=== PATIENT | male | born 1965 | race Caucasian/White ===

== ENCOUNTER 2017-01-05 10:34 | Emergency (ER) | payer BC, OTHER ==
[~2017-01-05] VITALS: Ht 175.3 cm; Wt 68.5 kg
[~2017-01-05 10:34] MED LIST: LXP10 PO
[2017-01-05 10:37] VITALS: TEMP 36.4; Ht 175.3 cm; Wt 68.5 kg
[2017-01-05] MEDS ORDERED: HYDROCODONE/ACETAMOPHEN 5/325MG TAB PO STA (11:04)
[2017-01-05] MEDS ORDERED: KETOROLAC TROMETHAMINE 60 MG/2 ML VIAL IM STA (11:04)
--- NOTE | 2017-01-05 11:39 | DIAGNOSTIC IMAGING REPORT ---
LUMBAR SPINE 5 VIEWS CLINICAL HISTORY: Fall with low back pain. FINDINGS: 5 views of the lumbar spine are compared to study dated 12/11/2011. The skeletal structures appear osteopenic. There is no radiographic evidence of fracture or malalignment. Vertebral body height and alignment are maintained. The transverse and spinous processes are intact. There is no evidence of spondylolysis. The intervertebral disc spaces are well-maintained. The visualized bony pelvis appears intact. There is a nonobstructed abdominal bowel gas pattern. There is mild atherosclerotic calcification of the abdominal aorta. IMPRESSION: No acute bony abnormality is seen involving the lumbosacral spine. Electronically signed by: Barrett Childers M.D. 01/05/2017 11:38 AM Dictated Date/Time: 01/05/2017 11:36 AM
--- NOTE | 2017-01-05 11:41 | DIAGNOSTIC IMAGING REPORT ---
SINGLE VIEW PELVIS CLINICAL HISTORY: Fall with pelvic pain. FINDINGS: An AP pelvic radiograph is obtained. No prior studies are available for comparison at the time of dictation. The skeletal structures are well mineralized. No fracture is seen involving the hips or bony pelvis. The joint spaces of the hips are preserved. The sacroiliac joints are maintained. The overlying soft tissues are within normal limits. Pelvic phleboliths are observed. There is a nonobstructed abdominal bowel gas pattern. IMPRESSION: There is no radiographic evidence of fracture involving the hips or bony pelvis. Electronically signed by: Barrett Childers M.D. 01/05/2017 11:40 AM Dictated Date/Time: 01/05/2017 11:38 AM
[2017-01-05] MEDS ORDERED: HYDR-5688 PO (12:08)
--- NOTE | 2017-01-05 12:10 | EMERGENCY ROOM VISIT NOTE ---
History First contact with patient: 10:49 Chief Complaint: FALL Stated Complaint: FALL/R SIDE/BACK PAIN History of Present Illness The patient is a 51 year old male who presents to the Emergency Room with complaints of right-sided low back pain. The patient states that last night he was going down the basement and slipped and fell striking his right lower back on the edge of the step. He states the steps are carpeted. The patient denies any pain radiating down his legs or any numbness and tingling. The patient points to the right iliac crest of the area of pain. The patient denies any urinary symptoms of frequency, urgency or dysuria. The patient had back surgery by in the past. Review of Systems 10 system review was performed and was negative unless stated otherwise history of present illness. Past Medical/Surgical History Medical Problems: (1) HYPERLIPIDEMIA NEC/NOS (2) LUMBAGO (3) OSTEOARTHROS NOS-UNSPEC Social History Smoking Status: Current Every Day Smoker Alcohol Use: occasionally Marital Status: Occupation Status: employed Current/Historical Medications Scheduled Escitalopram Oxalate (Escitalopram Oxalate), 1 TAB PO DAILY Allergies Coded Allergies: No Known Allergies (Unverified , 01/05/17) Physical Exam Vital Signs Date Time Temp Pulse Resp B/P Pulse Ox O2 Delivery O2 Flow Rate FiO2 01/05/17 10:37 36.4 89 18 138/85 100 Room Air Physical Exam PHYSICAL EXAM: Vital Signs normal: Reviewed Nurse's notes and agree. GEN.: 51- year-old white male appears uncomfortable secondary to pain. MENTAL STATUS: Alert and oriented 3. LUMBAR SPINE: No gross bony abnormality noted. Patient is nontender to palpation over the spinous processes. He is tender to palpation over the right paravertebral region, left side nontender. He has limited range of motion in all directions secondary to pain. Muscle strength is 5 out of 5 bilateral lower extremities and symmetrical. PELVIS: The patient has tenderness to palpation over the right iliac crest. Full range of motion of both hips. No tenderness over the greater trochanter. NEURO: Patient is able to heel and toe walk without difficulty. I lateral patellar and Achilles reflexes are 2+. Sensation is intact to pinprick bilateral lower extremities. Negative straight leg raise bilaterally. Medical Decision & Procedures ER Provider Diagnostic Interpretation: LUMBAR SPINE 5 VIEWS CLINICAL HISTORY: Fall with low back pain. FINDINGS: 5 views of the lumbar spine are compared to study dated 12/11/2011. The skeletal structures appear osteopenic. There is no radiographic evidence of fracture or malalignment. Vertebral body height and alignment are maintained. The transverse and spinous processes are intact. There is no evidence of spondylolysis. The intervertebral disc spaces are well-maintained. The visualized bony pelvis appears intact. There is a nonobstructed abdominal bowel gas pattern. There is mild atherosclerotic calcification of the abdominal aorta. IMPRESSION: No acute bony abnormality is seen involving the lumbosacral spine. Electronically signed by: Barrett Childers M.D. 01/05/2017 11:38 AM Dictated Date/Time: 01/05/2017 11:36 AM SINGLE VIEW PELVIS CLINICAL HISTORY: Fall with pelvic pain. FINDINGS: An AP pelvic radiograph is obtained. No prior studies are available for comparison at the time of dictation. The skeletal structures are well mineralized. No fracture is seen involving the hips or bony pelvis. The joint spaces of the hips are preserved. The sacroiliac joints are maintained. The overlying soft tissues are within normal limits. Pelvic phleboliths are observed. There is a nonobstructed abdominal bowel gas pattern. IMPRESSION: There is no radiographic evidence of fracture involving the hips or bony pelvis. Electronically signed by: Barrett Childers M.D. 01/05/2017 11:40 AM Dictated Date/Time: 01/05/2017 11:38 AM Medications Administered Medications (Trade) Dose Ordered Sig/[place] Route Start Time Stop Time Status Last Admin Dose Admin Ketorolac Tromethamine (Toradol Inj) 60 mg NOW STAT IM 01/05/17 11:04 01/05/17 11:06 DC 01/05/17 11:16 60 MG Acetaminophen/ Hydrocodone Bitart ([place] 5/325 Tab) 2 tab NOW STAT PO 01/05/17 11:04 01/05/17 11:06 DC 01/05/17 11:17 2 TAB ED Course The patient was evaluated. The patient was given Toradol 60 mg IM, [place] 5/325 mg 2 tablets by mouth for pain. X-ray of the pelvis and lumbar spine were ordered and interpreted by the radiologist and myself as above without any acute findings. The patient was reevaluated and was feeling better. The patient was discharged home with his driving.. Medical Decision Differential diagnosis include pelvic fracture, lumbar fracture, contusion, lumbar stenosis, Impression Primary Impression: Fall Additional Impressions: Contusion of hip, left Low back pain Departure Information Dispostion Home / Self-Care Condition GOOD Prescriptions Hydrocodone/Acetaminophen 5MG/325MG ([place] 5MG/325MG) Tab 1-2 TABLET PO Q6 Y for Pain, #20 TAB For Initial Treatment Prov: Swati Geiger PA-C 01/05/17 Referrals Ramsey Peterson M.D. (PCP) Forms HOME CARE DOCUMENTATION FORM, IMPORTANT VISIT INFORMATION Patient Instructions [facility] Additional Instructions Ibuprofen 600 mg every 6 hours with food for pain. Take [place] as needed for more severe pain. Do not drive while taking the [place]. If symptoms persist recommend follow-up with your family physician. Off work for 2 days. Work Instructions Return To Work: 3 days Problem Qualifiers
[2017-01-05 12:21] VITALS: BP 130/80; PULSE 87; O2SAT 97
[2017-02-12] MEDS ORDERED: ESCI10TA17 PO (08:57)
== END 2017-01-05 12:15 | disposition home or self-care (01) ==
LOC: C.EDB 10:37 → C.EDD 12:15
DX: S70.02XA Contusion of left hip, initial encounter (principal); W10.8XXA Fall (on) (from) other stairs and steps, initial encounter; Y92.89 Other specified places as the place of occurrence of the external cause; M54.5 Low back pain; E78.5 Hyperlipidemia, unspecified; M19.90 Unspecified osteoarthritis, unspecified site; F17.200 Nicotine dependence, unspecified, uncomplicated; Z79.899 Other long term (current) drug therapy

== ENCOUNTER → 2017-02-25 | Day surgery (SDC) | payer BC, OTHER ==
[2017-02-12 08:57] VITALS: Ht 175.3 cm; Wt 69.1 kg
[~2017-02-25] VITALS: Ht 175.3 cm; Wt 69.1 kg
[~2017-02-25] MED LIST changes: +ESCI10TA17 PO; +LIDOCAINE HCL 2% 2 ML VIAL (20MG/ML) ONE; -LXP10 PO; +MIDAZOLAM HCL 1 MG/ML 2ML VIAL ONE; +ONDANSETRON INJ 2 MG/ML 2 ML VIAL ONE; +PROPOFOL IV EMULSION 10 MG/ML 20 ML VIAL IV ONE; +SODIUM CHLORIDE 0.9% 500ML 500 ML IV ONE
--- NOTE | 2017-02-25 10:35 | Endo History and Physical ---
History & Physical Date of Service: Feb 25, 2017. Chief Complaint: Screening Referring Physician: Dr. Peterson History of Present Illness 51 yo CM who presents for screening colonoscopy. Past Surgical History Hx Cardiac Surgery: No Hx Internal Defibrillator: No Hx Pacemaker: No Hx Abdominal Surgery: No Hx of Implantable Prosthesis: No Hx Post-Op Nausea and Vomiting: No Hx Cancer Surgery: No Hx Thoracic Surgery: No Hx Orthopedic: Yes (LUMBAR DISCECTOMY) Hx Urinary Tract Surgery: No Family History None Social History Smoking Status: Current Every Day Smoker Hx Substance Use: No Hx Alcohol Use: Yes (3-4 BEERS DAILY) Allergies Coded Allergies: No Known Allergies (Verified , 02/25/17) Current Medications Reported Home Medications Medications Dose Route/Sig Max Daily Dose Days Date Category Lexapro (Escitalopram Oxalate) 10 Mg Tab 10 Mg PO QAM 02/12/17 Reported Vital Signs Weight (Kilograms): 69.09 Height (Feet): 5 Height (Inches): 9 Physical Exam General Appearance: WD/WN, no apparent distress Respiratory/Chest: Auscultation: breath sounds normal Cardiovascular: Heart Auscultation: RRR Abdomen: Bowel Sounds: normal Inspection & Palpation: soft, non-distended, no tenderness, guarding & rebound Assessment and Plan Assessment: 51 yo CM who presents for screening colonoscopy. Plan: Proceed with colonoscopy.
--- NOTE | 2017-02-25 11:46 | Discharge Instructions ---
Endoscopy Patient Instructions Date / Procedure(s) Performed Feb 25, 2017. Colonoscopy Allergy Information Coded Allergies: No Known Allergies (Verified , 02/25/17) Discharge Date / Findings Feb 25, 2017. Internal hemorrhoids Medication Instructions OK to resume all medications today as prescribed Reported Home Medications Medications Dose Route/Sig Max Daily Dose Days Date Category Lexapro (Escitalopram Oxalate) 10 Mg Tab 10 Mg PO QAM 02/12/17 Reported Provider Instructions Activity Restrictions - No exercising or heavy lifting for 24 hours. - Do not drink alcohol the day of the procedure. - Do not drive a car or operate machinery until the day after the procedure. - Do not make any important decisions or sign important papers in 24 hours after the procedure. Following Day: - Return to full activity which may include returning to work/school. Diet Start your diet with liquids and light foods (jello, soup, juice, toast). Then eat your usual diet if not nauseated. Treatment For Common After Affects For mild abdominal pain, bloating, or excessive gas: - Rest - Eat lightly - Lie on right side Follow-Up Information Follow-up with Dr. Ramsey Peterson as scheduled Anesthesia Information What You Should Know You have had a procedure that required some medicine to reduce anxiety and discomfort. This treatment is called moderate sedation. After receiving the treatment, you may be sleepy, but you will be able to breathe on your own. The effects of the treatment may last for several hours. Follow these instructions along with Activity/Diet recommendations noted above: * Do NOT do anything where dizziness or clumsiness would be dangerous. * Rest quietly at home today, then you can be up and about tomorrow. * Have a responsible person stay with you the rest of today. * You may have had an I.V. today. If so, you may take the dressing off later today. Recommendations Call your doctor if: * Trouble breathing * Continuous vomiting for more than 24 hours * Temperature above 101 degrees * Severe abdominal pain or bloating * Pain not relieved by pain medicine ordered * There is increased drainage or redness from any incision * A large amount of rectal bleeding greater than 2-3 tablespoons. (If you had a polyp/s removed or have hemorrhoids, a small amount of blood - from the rectum is to be expected.) * You have any unanswered questions or concerns. IN THE EVENT OF A SERIOUS EMERGENCY, GO TO THE NEAREST EMERGENCY ROOM Your discharge instructions were prepared by provider Jacques Reina. Patient Instructions Signature Page Al Eisenbergvilma Patient (or Guardian) Signature/Date: I have read and understand the instructions given to me by my caregivers. Caregiver/RN/Doctor Signature/Date: The above-named patient and/or guardian has received patient instructions on this date. + Original Patient Signature Page (only) stays with chart. Please make copy for patient.
--- NOTE | 2017-02-25 11:54 | GI REPORT ---
Procedure Date: 02/25/2017 10:57 AM THIS REPORT HAS BEEN AMENDED Addendum Number: 1 Addendum Date: 02/25/2017 12:33:27 PM No specimens were obtained during this procedure, and therefore no pathology is pending. Repeat colonoscopy in 10 years Procedure: Colonoscopy Indications: Screening for colorectal malignant neoplasm Medicines: Monitored Anesthesia Care Complications: No immediate complications. Estimated Blood Loss: Estimated blood loss: none. Procedure: Pre-Anesthesia Assessment: - Prior to the procedure, a History and Physical was performed, and patient medications and allergies were reviewed. The patient's tolerance of previous anesthesia was also reviewed. The risks and benefits of the procedure and the sedation options and risks were discussed with the patient. All questions were answered, and informed consent was obtained. Prior Anticoagulants: The patient has taken no previous anticoagulant or antiplatelet agents. ASA Grade Assessment: II - A patient with mild systemic disease. After reviewing the risks and benefits, the patient was deemed in satisfactory condition to undergo the procedure. After I obtained informed consent, the scope was passed under direct vision. Throughout the procedure, the patient's blood pressure, pulse, and oxygen saturations were monitored continuously. The Scope was introduced through the anus and advanced to the terminal ileum. The colonoscopy was performed without difficulty. The patient tolerated the procedure well. The quality of the bowel preparation was good. The terminal ileum, ileocecal valve, appendiceal orifice, and rectum were photographed. Findings: Non-bleeding internal hemorrhoids were found during retroflexion. The hemorrhoids were small. Impression: - Non-bleeding internal hemorrhoids. - No specimens collected. Recommendation: - Resume previous diet. - Continue present medications. - Repeat colonoscopy for surveillance based on pathology results. - Return to primary care physician as previously scheduled. Jacques Vann Nuno 02/25/2017 11:53:27 AM This report has been signed electronically. Note Initiated On: 02/25/2017 10:57 AM I attest to the content of the Intraoperative Record and orders documented therein, exceptions below Jacques Vann NunoDO 02/25/2017 12:35:11 PM This report has been signed electronically.
--- NOTE | 2017-02-25 11:58 | Anesthesiology Progress Note ---
Anesthesia Post Op Note Date & Time Feb 25, 2017 at 11:58 Vital Signs Pain Intensity: 0 Vital Signs Past 12 Hours Date Time Temp Pulse Resp B/P Pulse Ox O2 Delivery O2 Flow Rate FiO2 02/25/17 11:47 79 16 92/59 99 Room Air 02/25/17 10:35 36.5 78 20 114/67 100 Room Air Notes Mental Status: alert / awake / arousable, participated in evaluation Pt Amnestic to Procedure: Yes Nausea / Vomiting: adequately controlled Pain: adequately controlled Airway Patency, RR, SpO2: stable & adequate BP & HR: stable & adequate Hydration State: stable & adequate Anesthetic Complications: no major complications apparent Pt doing well.
[2017-02-25 12:17] VITALS: BP 106/76; PULSE 70; O2SAT 100
== END | disposition home or self-care (01) ==
LOC: C.GI 10:08
PROVIDERS: ATTEND Internal Medicine
DX: Z12.11 Encounter for screening for malignant neoplasm of colon (principal); F17.210 Nicotine dependence, cigarettes, uncomplicated; K64.8 Other hemorrhoids

== ENCOUNTER → 2017-07-25 | Outpatient (CLI) | payer OTHER, BC ==
[~2017-07-25] MED LIST changes: -LIDOCAINE HCL 2% 2 ML VIAL (20MG/ML) ONE; -MIDAZOLAM HCL 1 MG/ML 2ML VIAL ONE; -ONDANSETRON INJ 2 MG/ML 2 ML VIAL ONE; -PROPOFOL IV EMULSION 10 MG/ML 20 ML VIAL IV ONE; -SODIUM CHLORIDE 0.9% 500ML 500 ML IV ONE
[2017-07-25 17:54] LABS: ALB/GLOB RATIO 1.1 (0.9-2); ALKALINE PHOSPHATASE 57 U/L (45-117); ALT/SGPT 23 U/L (12-78); AST/SGOT 14 U/L (15-37); BLOOD UREA NITROGEN 12 mg/dl (7-18); BUN/CREATININE RATIO 12.3 (10-20); CALCIUM 9.1 mg/dl (8.5-10.1); CARBON DIOXIDE 28 mmol/L (21-32); CHLORIDE 106 mmol/L (98-107); CREATININE 0.95 mg/dl (0.60-1.40); GLUCOSE 121 mg/dl (70-99); HDL CHOLESTEROL 51 mg/dl; POTASSIUM 3.8 mmol/L (3.5-5.1); SODIUM 139 mmol/L (136-145)
[2017-07-25 17:55] LABS: CHOLESTEROL 172 mg/dl (0-200); CHOLESTEROL/HDL RATIO 3.4; LDL CHOLESTEROL CALCULATED 99 mg/dl; TRIGLYCERIDES 110 mg/dl (0-150); VERY LOW DENSITY LIPOPROT CALC 22 mg/dl
== END | disposition home or self-care (01) ==
LOC: C.LABBFT 15:21
PROVIDERS: ATTEND Physician Assistant Medical
DX: Z00.00 Encounter for general adult medical examination without abnormal findings (principal); E58 Dietary calcium deficiency; F17.200 Nicotine dependence, unspecified, uncomplicated